=== PATIENT | female | born 1995 | race Caucasian/White ===

== ENCOUNTER → 2016-11-18 | Outpatient (CLI) | payer BC ==
[~2016-11-18] MED LIST: GADOBUTROL 10 MMOL/10 ML (GADAVIST) VIAL IV ONE
--- NOTE | 2016-11-18 16:09 | Diagnostic Imaging Report ---
CLINICAL INDICATION: Patient states has history of chronic headaches for years. No known injury. EXAM: MRI of the brain performed without and with 8 cc of Gadovist IV contrast. Sequences include axial DWI, ADC map, coronal gradient echo, axial T2, axial FLAIR, axial T1, axial T1 post IV contrast, coronal T1 fat-sat post IV contrast, and sagittal T1 post IV contrast. COMPARISON: None. FINDINGS: There is no evidence of acute cerebral infarct, intracranial hemorrhage, or gross mass effect. 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 There is normal umhammad-white matter distinction. The brain parenchymal volume appears appropriate for patient's age. There is no significant midline shift or herniation. The pituitary gland, sella, and suprasellar regions are unremarkable as visualized. The visualized [place] vascular structures are unremarkable as visualized. There is no evidence of hydrocephalus. The basal cisterns are unremarkable. The skull, extracranial soft tissue, and orbits are unremarkable. There is a small mucus retention cyst on the roof of the right maxillary sinus. IMPRESSION: 1: Mild right maxillary sinus disease. 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 3: Otherwise, unremarkable MRI of the brain. Dictated by: Dictated on workstation # [id number]
== END ==
LOC: RAD 15:05
PROVIDERS: ATTEND Nurse Practitioner Family
DX: J32.0 Chronic maxillary sinusitis (principal); R51 Headache
CPT/HCPCS: 70553

== ENCOUNTER 2017-07-27 19:57 | Emergency (ER) | payer BC ==
[~2017-07-27] VITALS: Ht 167.6 cm; Wt 95.3 kg
[2017-07-27] MEDS ORDERED: NS IV 1000 ML 1,000 ML IV ONE ×2 (21:10→22:46)
[2017-07-27 21:16] LABS: BASOPHILS % (AUTO) 0 % (0-10); EOSINOPHILS % (AUTO) 0 % (0-10); LYMPHOCYTES # (AUTO) 1.4 X 10^3 (1.0-4.0); LYMPHOCYTES % (AUTO) 12 % (12-44); MEAN CORPUSCULAR HEMOGLOBIN 28 PG (25-34); MEAN CORPUSCULAR HGB CONC 33 G/DL (32-36); MEAN CORPUSCULAR VOLUME 84 FL (80-99); MEAN PLATELET VOLUME 11.6 FL (7.4-10.4); MONOCYTES # (AUTO) 0.5 X 10^3 (0.0-1.0); MONOCYTES % (AUTO) 4 % (0-12); NEUTROPHILS % (AUTO) 84 % (42-75); PLATELET COUNT 283 10^3/uL (130-400); RED BLOOD COUNT 4.97 10^6/uL (4.35-5.85); RED CELL DISTRIBUTION WIDTH 13.2 % (10.0-14.5)
[2017-07-27 21:32] LABS: ALANINE AMINOTRANSFERASE 30 U/L (0-55); ALBUMIN 4.1 GM/DL (3.2-4.5); ANION GAP 14 MMOL/L (5-14); ASPARTATE AMINO TRANSFERASE 26 U/L (5-34); BILIRUBIN,TOTAL 0.6 MG/DL (0.1-1.0); BLOOD UREA NITROGEN 8 MG/DL (7-18); BUN/CREATININE RATIO 12; CALCIUM 9.3 MG/DL (8.5-10.1); CARBON DIOXIDE 19 MMOL/L (21-32); CHLORIDE 108 MMOL/L (98-107); CREATININE SERUM 0.67 MG/DL (0.60-1.30); GFR ESTIMATED > 60; GLUCOSE 105 MG/DL (70-105); POTASSIUM 3.9 MMOL/L (3.6-5.0); SODIUM 141 MMOL/L (135-145); TOTAL PROTEIN 7.5 GM/DL (6.4-8.2)
--- NOTE | 2017-07-27 21:49 | ED General ---
General Chief Complaint: Dizziness/Syncope Stated Complaint: HEADACHE/DIZZINESS/VOMITING Nursing Triage Note: PATIENT WOKE AT 0315 THIS AM AND WAS DIZZY LAYING IN BED. SHE DID NOT GET UP. THIS MORNING WHEN SHE GOT UP SHE BECAME DIZZY AGAIN FOLLOWED BY NAUSEA AND VOMITING. SHE STATES SHE HAS BEEN "HOT AND COLD" ALL DAY. NO FEVERS AT HOME. Nursing Sepsis Screen: Possible Sepsis Risk Source of Information: Patient Exam Limitations: No Limitations History of Present Illness Time Seen by Provider: 21:35 Initial Comments Here with report of waking up about 315 this morning and feeling dizzy. This later became dizziness with nausea and vomiting. Reports feeling feverish and chills today. This worsened tonight including dizziness and not feeling well. She did have a headache earlier and she took ibuprofen for that and that helped. States that she believes she was dehydrated prior to this illness and still feels dehydrated now. Denies dysuria. Timing/Duration: 24 Hours Severity: Moderate Associated Systoms: No Cough, Fever/Chills, Loss of Appetite, Nausea/Vomiting, No Shortness of Air Allergies and Home Medications Allergies Coded Allergies: No Known Drug Allergies (Unverified , 11/18/16) Constitutional: see HPI, dizziness EENTM: no symptoms reported Respiratory: no symptoms reported, No cough, No short of breath Cardiovascular: No chest pain, No palpitations Gastrointestinal: No abdominal pain, nausea, vomiting Genitourinary: no symptoms reported Musculoskeletal: no symptoms reported Skin: no symptoms reported All Other Systems Reviewed Negative Unless Noted: Yes Past Fcyiwlt-Flvfnk-Muidns Hx Patient Social History Alcohol Use: Rarely Uses Recreational Drug Use: No 2nd Hand Smoke Exposure: No Recent Foreign Travel: No Contact w/Someone Who Travel: No Recent Infectious Disease Expo: No Recent Hopitalizations: No Physical Abuse: No Sexual Abuse: No Seasonal Allergies Seasonal Allergies: No Surgeries History of Surgeries: Yes (WISDOM TEETH JANUARY 2014) Respiratory History of Respiratory Disorde: No Cardiovascular History of Cardiac Disorders: No Neurological History of Neurological Disord: Yes Neurological Disorders: Headaches /Migraines Genitourinary History of Genitourinary Disor: No Gastrointestinal History of Gastrointestinal Di: No Musculoskeletal History of Musculoskeletal Dis: No Endocrine History of Endocrine Disorders: Yes Endocrine Disorders: Hypothyroidsim HEENT History of HEENT Disorders: No Cancer History of Cancer: No Psychosocial History of Psychiatric Problem: No Suicide Risk Score: 0 Blood Transfusions History of Blood Disorders: No Reviewed Nursing Assessment Reviewed/Agree w Nursing PMH: Yes Family Medical History Significant Family History: No Pertinent Family Hx Physical Exam Vital Signs Vital Sign - Last 12Hours 07/27/17 20:41 Temp 99.1 Pulse 112 Resp 22 B/P (MAP) 140/81 Pulse Ox 97 Capillary Refill : Less Than 3 Seconds General Appearance: No Apparent Distress, WD/WN HEENT: PERRL/EOMI, Pharynx Normal Neck: Non Tender, Supple Respiratory: Lungs Clear, Normal Breath Sounds Cardiovascular: No Murmur, Tachycardia Gastrointestinal: Normal Bowel Sounds, Non Tender, Soft Back: Normal Inspection, No CVA Tenderness, No Vertebral Tenderness Extremity: Normal Range of Motion, Non Tender, No Calf Tenderness Neurologic/Psychiatric: Alert, Oriented x3 Skin: Normal Color, Warm/Dry Progress/Results/Core Measures Suspected Sepsis Recent Fever Within 48 Hours: No Infection Criteria Present: Suspected New Infection New/Unexplained Altered Menta: No Sepsis Screen: Possible Sepsis Risk Sepsis Diagnosis: SIRS Temperature:99.1 Pulse: 112 Respiratory Rate: 22 Laboratory Tests 07/27/17 21:07: White Blood Count 12.0H Blood Pressure 140 /81 Mean: 100 Laboratory Tests 07/27/17 21:07: Creatinine 0.67, Platelet Count 283, Total Bilirubin 0.6 Results/Orders Lab Results Laboratory Tests Test 07/27/17 21:07 07/27/17 23:14 Range/Units White Blood Count 12.0 H 4.3-11.0 10^3/uL Red Blood Count 4.97 4.35-5.85 10^6/uL Hemoglobin 14.0 11.5-16.0 G/DL Hematocrit 42 35-52 % Mean Corpuscular Volume 84 80-99 FL Mean Corpuscular Hemoglobin 28 25-34 PG Mean Corpuscular Hemoglobin Concent 33 32-36 G/DL Red Cell Distribution Width 13.2 10.0-14.5 % Platelet Count 283 130-400 10^3/uL Mean Platelet Volume 11.6 H 7.4-10.4 FL Neutrophils (%) (Auto) 84 H 42-75 % Lymphocytes (%) (Auto) 12 12-44 % Monocytes (%) (Auto) 4 0-12 % Eosinophils (%) (Auto) 0 0-10 % Basophils (%) (Auto) 0 0-10 % Neutrophils # (Auto) 10.0 H 1.8-7.8 X 10^3 Lymphocytes # (Auto) 1.4 1.0-4.0 X 10^3 Monocytes # (Auto) 0.5 0.0-1.0 X 10^3 Eosinophils # (Auto) 0.0 0.0-0.3 10^3/uL Basophils # (Auto) 0.0 0.0-0.1 10^3/uL Sodium Level 141 135-145 MMOL/L Potassium Level 3.9 3.6-5.0 MMOL/L Chloride Level 108 H 98-107 MMOL/L Carbon Dioxide Level 19 L 21-32 MMOL/L Anion Gap 14 5-14 MMOL/L Blood Urea Nitrogen 8 7-18 MG/DL Creatinine 0.67 0.60-1.30 MG/DL Estimat Glomerular Filtration Rate > 60 BUN/Creatinine Ratio 12 Glucose Level 105 70-105 MG/DL Calcium Level 9.3 8.5-10.1 MG/DL Total Bilirubin 0.6 0.1-1.0 MG/DL Aspartate Amino Transf (AST/SGOT) 26 5-34 U/L Alanine Aminotransferase (ALT/SGPT) 30 0-55 U/L Alkaline Phosphatase 54 40-136 U/L Total Protein 7.5 6.4-8.2 GM/DL Albumin 4.1 3.2-4.5 GM/DL Thyroid Stimulating Hormone (TSH) 1.09 0.35-4.94 UIU/ML Urine Color FABI H Urine Clarity CLEAR Urine pH 6 5-9 Urine Specific Deputy 1.025 H 1.016-1.022 Urine Protein 2+ H NEGATIVE Urine Glucose (UA) NEGATIVE NEGATIVE Urine Ketones 4+ H NEGATIVE Urine Nitrite NEGATIVE NEGATIVE Urine Bilirubin NEGATIVE NEGATIVE Urine Urobilinogen NORMAL NORMAL MG/DL Urine Leukocyte Esterase 2+ H NEGATIVE Urine RBC (Auto) 2+ H NEGATIVE Urine RBC 2-5 H /HPF Urine WBC 5-10 H /HPF Urine Squamous Epithelial Cells 2-5 /HPF Urine Crystals NONE /LPF Urine Bacteria MODERATE H /HPF Urine Casts NONE /LPF Urine Mucus LARGE H /LPF Urine Culture Indicated YES My Orders Orders - KRYSTLE MCELROY MD Cbc With Automated Diff (07/27/17 21:10) Comprehensive Metabolic Panel (07/27/17 21:10) Ua Culture If Indicated (07/27/17 21:10) Saline Lock/Iv-Start (07/27/17 21:10) Ns Iv 1000 Ml (Sodium Chloride 0.9%) (07/27/17 21:10) Thyroid Stimulating Hormone (07/27/17 21:45) Ns Iv 1000 Ml (Sodium Chloride 0.9%) (07/27/17 22:46) Ketorolac Injection (Toradol Injection) (07/27/17 22:53) Urine Bedside (07/27/17 23:43) Urine Culture (07/27/17 23:14) Medications Given in ED Current Medications Medications Dose Ordered Sig/Sravanthi Route Start Time Stop Time Status Last Admin Dose Admin Sodium Chloride 1,000 ml @ 0 mls/hr Q0M ONCE IV 07/27/17 21:10 07/27/17 21:11 DC 07/27/17 21:22 0 MLS/HR Sodium Chloride 1,000 ml @ 0 mls/hr Q0M ONCE IV 07/27/17 22:46 07/27/17 22:47 DC 07/27/17 22:51 0 MLS/HR Vital Signs/I&O Vital Sign - Last 12Hours 07/27/17 07/27/17 20:41 22:40 Temp 99.1 100.2 Pulse 112 Resp 22 B/P (MAP) 140/81 Pulse Ox 97 Capillary Refill : Less Than 3 Seconds Blood Pressure Mean: 100 Progress Note : Progress Note Seen and evaluated. IV, labs and UA ordered. Normal saline 1 L bolus ordered. Monitor patient. 2230: Repeat normal saline 1 L bolus ordered. Toradol 30 mg IV ordered for headache. Patient has not been able to give urine sample yet. Monitor patient. 2357: UA obtained. Monitor patient. 0032: Fluids complete and she is feeling a little better. The urine is somewhat contaminated but culture is pending. We will hold antibiotics until culture complete. I do believe that she is contaminated at this point. This was discussed with patient and family who verbalize understanding. Discharged home with return precautions. Patient verbalize understanding instructions and agreement with plan. Departure Impression Impression: Primary Impression: Dehydration Additional Impression: Nausea and vomiting Qualified Codes: R11.2 - Nausea with vomiting, unspecified Disposition: 01 HOME, SELF-CARE Condition: Improved Departure-Patient Inst. Decision time for Depature: 00:35 Referrals: GUERITA HAMEED DO (PCP/Family) Primary Care Physician Patient Instructions: Dehydration, Adult (DC), Nausea and Vomiting, Adult (DC) Add. Discharge Instructions: All discharge instructions reviewed with patient and/or family. Voiced understanding. Continue home medications as prescribed. You may take ibuprofen and/or Tylenol as needed for headache. Drink plenty of fluids by taking small sips frequently. Clear liquid diet for 24 hours and then advance as tolerated. Return for worse pain, fever, vomiting, weakness, rhythm problems or other concerns as needed. Scripts Ondansetron (Ondansetron Odt) 4 Mg Tab.rapdis 4 MG PO Q6H Y for NAUSEA/VOMITING, #8 TAB 0 Refills Prov: KRYSTLE MCELROY MD 07/28/17 KRYSTLE MCELROY MD Jul 27, 2017 21:49
[2017-07-27] MEDS ORDERED: KETOROLAC 30 MG/ML VIAL IVP STA (22:53)
[2017-07-27 23:51] LABS: BILIRUBIN,URINE NEGATIVE (NEGATIVE); KETONES,URINE 4+ (NEGATIVE); LEUKOCYTE ESTERASE ,URINE 2+ (NEGATIVE); NITRITE,URINE NEGATIVE (NEGATIVE); PH,URINE 6 (5-9); PROTEIN,URINE 2+ (NEGATIVE); UROBILINOGEN,URINE NORMAL (NORMAL)
[2017-07-28] MEDS ORDERED: RX-ONDANSETRON 4 MG ODT (ZOFRAN) PPK #4 ONE (00:29)
[2017-07-28] MEDS ORDERED: RX-ONDANSETRON 4 MG ODT (ZOFRAN) PPK #4 PO STA (00:37)
[2017-07-28] MEDS ORDERED: ONDA4TAB11 PO (00:37)
[2017-07-28 00:45] VITALS: BP 134/74
== END 2017-07-28 00:45 | disposition home or self-care (01) ==
LOC: EDUNIT# 19:57 → ER 19:58
DX: E86.0 Dehydration (principal); E03.9 Hypothyroidism, unspecified; G43.909 Migraine, unspecified, not intractable, without status migrainosus
CPT/HCPCS: 36415; 80053; 81000; 84443; 84703; 85025; 87088; 87186; 96361; 96374

== ENCOUNTER 2018-06-30 11:34 | Emergency (ER) | payer BC ==
[~2018-06-30] VITALS: Ht 167.6 cm; Wt 102.1 kg
[~2018-06-30 11:34] MED LIST changes: -GADOBUTROL 10 MMOL/10 ML (GADAVIST) VIAL IV ONE; +ONDA4TAB11 PO
[2018-06-30] MEDS ORDERED: NORTRIPTYLINE (11:54)
[2018-06-30] MEDS ORDERED: LEVO25TA5 (11:54)
[2018-06-30] MEDS ORDERED: MELO15TA39 (11:54)
[2018-06-30] MEDS ORDERED: TETANUS,DIPTH,PERTUSS P/F (BOOSTRIX) 0.5 ML VIAL IM ONE (12:00)
[2018-06-30] MEDS ORDERED: AUGMENTIN 875 MG TAB (AMOXICILLIN/CLAVULANATE) PO SCH (12:00)
--- NOTE | 2018-06-30 12:01 | ED Upper Extremity ---
General Chief Complaint: Upper Extremity Stated Complaint: HAND STUCK IN RAT TRAP Nursing Triage Note: ARRIVED VIA AMB TO ROOM 10. PT HAS A RAT TRAP THAT DISODGED AND THE WIRE IS PUNCTURED INTO HER THUMB. Nursing Sepsis Screen: No Definite Risk Source: patient Exam Limitations: no limitations History of Present Illness Date Seen by Provider: Jun 30, 2018 Time Seen by Provider: 11:55 Initial Comments ER with complaints of left hand being stuck in a rat trap. This occurred just prior to arrival. 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 While setting the strap today, (this was a new unused trap) she thought she had a set when the trap discharged and one of the large sprains on the trap punctured the palmar side of the proximal phalanx of the thumb. Because of the tension on this spring she is unable to remove this herself. Onset: just prior to arrival Severity: moderate Pain/Injury Location: left thumb Modifying Factors: Worse With Movement Allergies and Home Medications Allergies Coded Allergies: No Known Drug Allergies (Unverified , 11/18/16) Home Medications Ondansetron 4 Mg Tab.rapdis, 4 MG PO Q6H PRN for NAUSEA/VOMITING Prescribed by: KRYSTLE MCELROY on 07/28/17 0037 Patient Home Medication List Home Medication List Reviewed: Yes Review of Systems Constitutional: see HPI EENTM: see HPI Respiratory: no symptoms reported Cardiovascular: no symptoms reported Genitourinary: no symptoms reported Musculoskeletal: see HPI Skin: see HPI Psychiatric/Neurological: No Symptoms Reported Past Eoeevhg-Tmzoda-Irmjjv Hx Patient Social History Alcohol Use: Denies Use Recreational Drug Use: No Smoking Status: Never a Smoker 2nd Hand Smoke Exposure: No Recent Foreign Travel: No Contact w/Someone Who Travel: No Recent Infectious Disease Expo: No Recent Hopitalizations: No Seasonal Allergies Seasonal Allergies: No Past Medical History Surgeries: Yes (WISDOM TEETH JANUARY 2014) Respiratory: No Cardiac: No Neurological: Yes Headaches /Migraines Last Menstrual Period: Jun 06, 2018 Genitourinary: No Gastrointestinal: No Musculoskeletal: No Endocrine: Yes Hypothyroidsim HEENT: No Cancer: No Psychosocial: No Integumentary: No Blood Disorders: No Family Medical History No Pertinent Family Hx Physical Exam Vital Signs Vital Signs - First Documented 06/30/18 11:34 Temp 98.0 Pulse 78 Resp 16 B/P (MAP) 146/110 (122) Pulse Ox 97 O2 Delivery Room Air Capillary Refill : Less Than 3 Seconds Height, Weight, BMI Height: 5'6.00" Weight: 225lbs. 0oz. [id number]; BMI Method:Stated General Appearance: WD/WN, no apparent distress HEENT: PERRL/EOMI, normal ENT inspection Neck: non-tender, full range of motion Respiratory: no respiratory distress, no accessory muscle use Shoulder: normal inspection, non-tender Elbow/Forearm: normal inspection, non-tender, Left Wrist: Yes normal inspection, Yes non-tender Hand: Left (one of the springs on the rat trap had punctured and remains in the palmar surface proximal phalanx left thumb. A digital block was done using 3 mL of 1% lidocaine without epinephrine and a 27-gauge needle. After adequate analgesia was achieved, this was removed by simply pulling it out. This was punctured through the skin by about 1 cm to 1.5 cm. Area was scrubbed with chlorhexidine/saline solution, wrapped with antibiotic ointment and gauze. Tetanus will be updated, prophylactic antibiotics. After this was removed she maintains the ability to fully flex the thumb so the flexor tendon seems to be intact.) Neurologic/Tendon: normal motor functions, normal tendon functions Neurologic/Psychiatric: alert, normal mood/affect, oriented x 3 Skin: normal color, warm/dry Progress/Results/Core Measures Results/Orders My Orders Orders - DANIEL FENTON APRN Dipht,Pertuss(Acell),Tet Adult (Boostrix (06/30/18 12:00) Amoxicillin/Clavulanate Tablet (Augmenti (06/30/18 12:00) Hand, Left, 3 Views (06/30/18 11:53) Vital Signs/I&O 06/30/18 11:34 Temp 98.0 Pulse 78 Resp 16 B/P (MAP) 146/110 (122) Pulse Ox 97 O2 Delivery Room Air Blood Pressure Mean: 122 Departure Impression Primary Impression: Puncture wound Disposition: 01 HOME, SELF-CARE Condition: Stable Departure-Patient Inst. Decision time for Depature: 12:00 Referrals: GUERITA HAMEED DO (PCP/Family) Primary Care Physician Patient Instructions: Wound Care Add. Discharge Instructions: 1. Keep this clean dry and covered for about 48 hours. After that you may let water run over this such as in the shower. However do not submerge or soak this in water such as a dish sink, bathtub or hot tub for about 7 days. Keep an eye on this for infection as that is her biggest concern with puncture wounds. This would be redness swelling or pus like drainage. Take the antibiotics as directed. Follow-up with either your regular physician or [employer] student health next week for recheck. I would have some concerns about a flexor tendon injury given the location of this puncture wound but I'm reassured by your ability to flex her thumb. Either way, this does warrant follow-up. All discharge instructions reviewed with patient and/or family. Voiced understanding. Scripts Hydrocodone/Acetaminophen ([place] 5-325 Tablet) 1 Each Tablet 1 EACH PO Q6H PRN for PAIN-MODERATE MDD 10, #10 TAB Prov: DANIEL FENTON APRN 06/30/18 Amoxicillin/Potassium Clav (Augmentin 875-125 Tablet) 1 Each Tablet 1 EACH PO BID, #10 TAB Prov: DANIEL FENTON APRN 06/30/18 Work/School Note: Work Release Form Date Seen in the Emergency Department: Jun 30, 2018 Return to Work: Jul 01, 2018 Images Extremities-Upper 1 - Puncture Wound DANIEL FENTON APRN Jun 30, 2018 12:01
[2018-06-30] MEDS ORDERED: HYDR-4226 PO (12:02)
[2018-06-30] MEDS ORDERED: AMOX-358 PO (12:02)
[2018-06-30 12:15] VITALS: BP 128/104
--- NOTE | 2018-06-30 12:35 | Diagnostic Imaging Report ---
INDICATION: Puncture wound to left thumb. 3 views of the left hand show no fracture, dislocation or radiopaque foreign objects. IMPRESSION: Negative left hand. Dictated by: Dictated on workstation # [id number]
== END 2018-06-30 12:15 | disposition home or self-care (01) ==
LOC: ER 11:34
DX: S61.032A Puncture wound without foreign body of left thumb without damage to nail, initial encounter (principal); G43.909 Migraine, unspecified, not intractable, without status migrainosus; E03.9 Hypothyroidism, unspecified; Z23 Encounter for immunization; W26.8XXA Contact with other sharp object(s), not elsewhere classified, initial encounter
CPT/HCPCS: 73130; 90471; 90715

== ENCOUNTER → 2019-04-08 | Outpatient (CLI) | payer BC ==
[~2019-04-08] MED LIST changes: +AMOX-358 PO; +HYDR-4226 PO; +LEVO25TA5; +MELO15TA39; +NORTRIPTYLINE
--- NOTE | 2019-04-08 12:37 | Diagnostic Imaging Report ---
PROCEDURE: US carotid duplex, bilateral. TECHNIQUE: Multiple real-time grayscale images were obtained over the carotid arteries in various projections, bilaterally. Additional spectral analysis and color Doppler duplex images were also obtained. INDICATION: Diplopia. FINDINGS: No carotid plaque is identified. Velocities are normal bilaterally. No velocity elevation or stenosis is seen. Both vertebral arteries show antegrade flow. IMPRESSION: No evidence of a hemodynamically significant stenosis. Parameters based on the consensus panel Kunz-Scale and Doppler ultrasound criteria published July 2003, Radiology, Volume 229. DOPPLER (peak systolic velocity M/S Right Left CCA 1.4 1.2 ICA Proximal .72 1.1 ICA Mid 1.0 1.1 ICA Distal .99 1.1 RATIO .73 .96 ECA 1.4 1.4 VERT .49 .78 Dictated by: Dictated on workstation # [id number]
== END ==
LOC: RAD 11:43
PROVIDERS: ATTEND Ophthalmology
DX: H53.2 Diplopia (principal); H02.423 Myogenic ptosis of bilateral eyelids; H50.52 Exophoria
CPT/HCPCS: 93880

== ENCOUNTER 2020-06-21 16:53 | Emergency (ER) | payer BC, OTHER ==
[~2020-06-21] VITALS: Ht 175.2 cm; Wt 104.3 kg
[2020-06-21] MEDS ORDERED: diphenhydrAMINE 50 MG/ML INJ (BENADRYL) IM ONE (17:30)
[2020-06-21] MEDS ORDERED: KETOROLAC 60 MG/2 ML VIAL IM ONE (17:30)
[2020-06-21] MEDS ORDERED: PROCHLORPERAZINE 10 MG/2ML INJ (COMPAZINE) IM ONE ×2 (17:30)
--- NOTE | 2020-06-21 17:37 | ED Headache ---
General Chief Complaint: Head/Cervical Problems Stated Complaint: MIGRAINE/NAUSEA Nursing Triage Note: Pt c/o severe headache since Thursday. Pt was seen at [facility] and was diagnosed with UTI and was put on Bactrim. Pt reports nausea and vomiting one time yesterday. Pt was seen at [facility] again yesterday and was given zofran and a Tramadol injection that pt reports provided no relief. Pt reports pain begins in eyes and radiates to back of head and neck. Pt reports history of headaches. Nursing Sepsis Screen: No Definite Risk Source: patient Exam Limitations: no limitations History of Present Illness Date Seen by Provider: Jun 21, 2020 Time Seen by Provider: 17:34 Initial Comments To ER with reports of a headache since Thursday. Was seen at [facility] diagnosed with UTI. She returned the next day for persistent headache, given tramadol and Zofran, no improvement. She is here today for the same. The location of the headache varies and it has been retro-orbital, frontal and occipital, she states the location changes. No fevers or chills. She follows with neurology for chronic headaches. She is on pyridostigmine for myasthenia gravis management. This is typical of her previous headaches, however, typically she can abort these at home with Tylenol and ibuprofen. Timing/Duration: constant Severity/Quality: moderate Location: global Prior Headaches/Recent Trauma: frequent headaches Associated Symptoms: No confusion, No fatigue, No facial pain, No fever/chills, No flushing; nausea/vomiting; No nasal congestion, No nasal drainage, No numbness in legs/feet Allergies and Home Medications Allergies Coded Allergies: No Known Drug Allergies (Unverified , 11/18/16) Home Medications Amoxicillin/Potassium Clav 1 Each Tablet, 1 EACH PO BID Prescribed by: DANIEL FENTON on 06/30/18 1202 Hydrocodone/Acetaminophen 1 Each Tablet, 1 EACH PO Q6H PRN for PAIN-MODERATE Prescribed by: DANIEL FENTON on 06/30/18 1202 Ondansetron 4 Mg Tab.rapdis, 4 MG PO Q6H PRN for NAUSEA/VOMITING Prescribed by: KRYSTLE MCELROY on 07/28/17 0037 Patient Home Medication List Home Medication List Reviewed: Yes Review of Systems Review of Systems Constitutional: see HPI; No chills, No fever Eyes: No Symptoms Reported Ears, Nose, Mouth, Throat: no symptoms reported Respiratory: no symptoms reported Cardiovascular: no symptoms reported Genitourinary: no symptoms reported Musculoskeletal: no symptoms reported Skin: no symptoms reported Psychiatric/Neurological: See HPI, Headache Past Pqoygii-Bbbimw-Oirztx Hx Patient Social History Alcohol Use: Rarely Uses Recreational Drug Use: No 2nd Hand Smoke Exposure: No Recent Foreign Travel: No Contact w/Someone Who Travel: No Recent Infectious Disease Expo: No Recent Hopitalizations: No Physical Abuse: No Sexual Abuse: No Mistreated: No Fear: No Seasonal Allergies Seasonal Allergies: No Past Medical History Surgeries: Yes (WISDOM TEETH JANUARY 2014) Respiratory: No Cardiac: No Neurological: Yes Headaches /Migraines Genitourinary: No Gastrointestinal: No Musculoskeletal: No Endocrine: Yes Hypothyroidsim HEENT: No Cancer: No Psychosocial: No Integumentary: No Blood Disorders: No Family Medical History No Pertinent Family Hx Physical Exam Vital Signs Vital Signs - First Documented 06/21/20 06/21/20 17:05 19:40 Temp 37.5 Pulse 111 Resp 15 B/P (MAP) 132/89 (103) Pulse Ox 98 O2 Delivery Room Air Capillary Refill : Less Than 3 Seconds Height, Weight, BMI Height: 5'6.00" Weight: 225lbs. 0oz. 102.993706vh; 33.00 BMI Method:Stated General Appearance: WD/WN, no apparent distress HEENT: PERRL/EOMI, normal ENT inspection Neck: non-tender, full range of motion Respiratory: no respiratory distress, no accessory muscle use Psychiatric: alert, oriented x 3 Crainal Nerves: normal hearing, normal speech, PERRL Skin: normal color, warm/dry Progress/Results/Core Measures Results/Orders Lab Results Laboratory Tests Test 06/21/20 19:01 Range/Units White Blood Count 7.6 4.3-11.0 10^3/uL Red Blood Count 5.23 H 3.80-5.11 10^6/uL Hemoglobin 14.1 11.5-16.0 g/dL Hematocrit 44 35-52 % Mean Corpuscular Volume 83 80-99 fL Mean Corpuscular Hemoglobin 27 25-34 pg Mean Corpuscular Hemoglobin Concent 32 32-36 g/dL Red Cell Distribution Width 12.9 10.0-14.5 % Platelet Count 315 130-400 10^3/uL Mean Platelet Volume 11.0 9.0-12.2 fL Immature Granulocyte % (Auto) 0 % Neutrophils (%) (Auto) 71 42-75 % Lymphocytes (%) (Auto) 23 12-44 % Monocytes (%) (Auto) 6 0-12 % Eosinophils (%) (Auto) 1 0-10 % Basophils (%) (Auto) 0 0-10 % Neutrophils # (Auto) 5.4 1.8-7.8 10^3/uL Lymphocytes # (Auto) 1.7 1.0-4.0 10^3/uL Monocytes # (Auto) 0.4 0.0-1.0 10^3/uL Eosinophils # (Auto) 0.1 0.0-0.3 10^3/uL Basophils # (Auto) 0.0 0.0-0.1 10^3/uL Immature Granulocyte # (Auto) 0.0 0.0-0.1 10^3/uL Sodium Level 138 135-145 MMOL/L Potassium Level 3.9 3.6-5.0 MMOL/L Chloride Level 106 98-107 MMOL/L Carbon Dioxide Level 20 L 21-32 MMOL/L Anion Gap 12 5-14 MMOL/L Blood Urea Nitrogen 14 7-18 MG/DL Creatinine 0.74 0.60-1.30 MG/DL Estimat Glomerular Filtration Rate > 60 BUN/Creatinine Ratio 19 Glucose Level 108 H 70-105 MG/DL Calcium Level 9.2 8.5-10.1 MG/DL My Orders Orders - DANIEL FENTON APRN Ketorolac Injection (Toradol Injection) (06/21/20 17:30) Prochlorperazine Injection (Compazine In (06/21/20 17:30) Diphenhydramine Injection (Benadryl Inje (06/21/20 17:30) Prochlorperazine Injection (Compazine In (06/21/20 17:30) Ed Iv/Invasive Line Start (06/21/20 18:47) Cbc With Automated Diff (06/21/20 18:47) Ct Head Wo (06/21/20 18:47) Ns Iv 1000 Ml (Sodium Chloride 0.9%) (06/21/20 19:00) Fentanyl Injection (Sublimaze Injection (06/21/20 19:00) Butalbital/Apap/Caffeine Tab (Fioricet T (06/21/20 19:00) Basic Metabolic Panel (06/21/20 19:03) Medications Given in ED Current Medications Medications Dose Ordered Sig/Sravanthi Route Start Time Stop Time Status Last Admin Dose Admin Acetaminophen/ Butalbital/ Caffeine 1 tab ONCE PRN PO 06/21/20 19:00 06/21/20 19:40 DC 06/21/20 19:00 1 TAB Fentanyl Citrate 50 mcg ONCE ONCE IVP 06/21/20 19:00 06/21/20 19:01 DC 06/21/20 19:00 50 MCG Ketorolac Tromethamine 60 mg ONCE ONCE IM 06/21/20 17:30 06/21/20 17:31 DC 06/21/20 17:32 60 MG Prochlorperazine Edisylate 10 mg ONCE ONCE IM 06/21/20 17:30 06/21/20 17:29 DC 06/21/20 17:30 5 MG Vital Signs/I&O 06/21/20 06/21/20 17:05 19:40 Temp 37.5 37.5 Pulse 111 91 Resp 15 B/P (MAP) 132/89 (103) 129/87 (103) Pulse Ox 98 98 O2 Delivery Room Air Room Air Blood Pressure Mean: 103 Departure Communication (Admissions) 1825-headache was 8 out of 10 on arrival, after intramuscular injection of 5 mg of Compazine and 60 mg of Toradol her headache reduced to 6 out of 10 at this time. As such we proceeded with a cervical paraspinous injection of 1.5 mL of lidocaine 1% without epinephrine about 1 inch lateral to C6 spinous process bilaterally with needle parallel to the floor to avoid lung apex. 5-paraspinous injection didn't help. IV started given IV fluids, Fioricet 1 and fentanyl 50 g. Her headache at this time is much better. Impression Primary Impression: Headache Disposition: HOME, SELF-CARE Condition: Stable Departure-Patient Inst. Decision time for Depature: 18:26 Referrals: GUERITA HAMEED DO (PCP/Family) Primary Care Physician Patient Instructions: Headache, Adult (DC) Add. Discharge Instructions: All discharge instructions reviewed with patient and/or family. Voiced understanding. DANIEL FENTON [employer]AL FEEDER OPERATOR Jun 21, 2020 17:37
[2020-06-21] MEDS ORDERED: NS IV 1000 ML 1,000 ML IV SCH (19:00)
[2020-06-21] MEDS ORDERED: fentaNYL INJECTION 100 MCG/2 ML AMP IVP ONE (19:00)
[2020-06-21] MEDS ORDERED: ACET/BUTAL/CAFF (FIORICET) TAB PO PRN (19:00)
[2020-06-21 19:08] LABS: BASOPHILS % (AUTO) 0 % (0-10); EOSINOPHILS # (AUTO) 0.1 10^3/uL (0.0-0.3); EOSINOPHILS % (AUTO) 1 % (0-10); HEMATOCRIT 44 % (35-52); HEMOGLOBIN 14.1 g/dL (11.5-16.0); LYMPHOCYTES # (AUTO) 1.7 10^3/uL (1.0-4.0); LYMPHOCYTES % (AUTO) 23 % (12-44); MEAN CORPUSCULAR HEMOGLOBIN 27 pg (25-34); MEAN CORPUSCULAR HGB CONC 32 g/dL (32-36); MEAN CORPUSCULAR VOLUME 83 fL (80-99); MONOCYTES # (AUTO) 0.4 10^3/uL (0.0-1.0); MONOCYTES % (AUTO) 6 % (0-12); NEUTROPHILS # (AUTO) 5.4 10^3/uL (1.8-7.8); NEUTROPHILS % (AUTO) 71 % (42-75); PLATELET COUNT 315 10^3/uL (130-400); WHITE BLOOD COUNT 7.6 10^3/uL (4.3-11.0)
[2020-06-21 19:18] LABS: CHLORIDE 106 MMOL/L (98-107); POTASSIUM 3.9 MMOL/L (3.6-5.0); SODIUM 138 MMOL/L (135-145)
[2020-06-21 19:19] LABS: CALCIUM 9.2 MG/DL (8.5-10.1)
[2020-06-21 19:20] LABS: GLUCOSE 108 MG/DL (70-105)
[2020-06-21 19:21] LABS: CARBON DIOXIDE 20 MMOL/L (21-32)
[2020-06-21 19:24] LABS: CREATININE SERUM 0.74 MG/DL (0.60-1.30); GFR ESTIMATED > 60
[2020-06-21 19:25] LABS: BUN/CREATININE RATIO 19
--- NOTE | 2020-06-21 19:27 | Diagnostic Imaging Report ---
PROCEDURE: CT head without contrast. TECHNIQUE: Multiple contiguous axial images were obtained through the brain without the use of intravenous contrast. Auto Exposure Controls were utilized during the CT exam to meet ALARA standards for radiation dose reduction. INDICATION: Headache. COMPARISON: None. FINDINGS: Ventricles are normal in size, shape and position. There is no midline shift or mass effect. There is no hemorrhage or evidence of acute ischemia. No extra-axial fluid collection is seen. There is no mass. Paranasal sinuses and mastoids are clear. The bony calvarium is normal. IMPRESSION: Negative CT head. Dictated by: Dictated on workstation # [id number]
[2020-06-21 19:40] VITALS: BP 129/87
== END 2020-06-21 19:40 | disposition home or self-care (01) ==
LOC: EDUNIT# 16:53 → ER 16:55
DX: R51.9 Headache, unspecified (principal)
CPT/HCPCS: 36415; 70450; 80048; 85025